=== PATIENT | male | born 1945 | race Hispanic/Latino ===

== ENCOUNTER 2023-08-31 10:53 | Day surgery (SDC) | payer OTHER, BC ==
[2023-08-28 13:43] LABS: Hematocrit 33.3 % (39.6-49.0); Lymphocytes % 17.9 % (15.3-44.8); MCV 95.8 fL (80-100); MPV 8.3 fL (7.6-11.3); Platelets 151 thou/uL (152-406); RBC Red Blood Cell Count 3.48 M/uL (4.33-5.43)
[2023-08-28 13:55] LABS: Protime INR 0.95
[2023-08-28 13:58] LABS: Potassium 4.5 mEq/L (3.5-5.1)
--- NOTE | 2023-08-29 17:25 | EKG ---
Test Date: 2023-08-28 Test Time: 14:32:54 Social Security Benefits Interviewer: JOSHUA MEASUREMENT RESULTS: Intervals: Rate: 57 MS: 150 QRSD: 106 QT: 402 QTc: 391 [place]: P: 19 MS: 150 QRS: -10 T: 6 INTERPRETIVE STATEMENTS: Sinus bradycardia Incomplete right bundle branch block Minimal voltage criteria for LVH, may be normal variant Inferior infarct, age undetermined Possible Anterior infarct, age undetermined Abnormal ECG Compared to ECG 04/11/2023 14:45:46 Left ventricular hypertrophy now present Sinus rhythm no longer present Myocardial infarct finding still present Electronically Signed On 08-29-23 17:23:19 CELL PREPARER by Nasim Polanco
[2023-08-31 11:46] VITALS: TEMP 97.9
[2023-08-31] MEDS ORDERED: NA CHLORIDE 0.9% 500 ML ONE (12:07)
[2023-08-31] MEDS ORDERED: LIDOCAINE 1% 20 ML MDV ONE (12:28)
[2023-08-31] MEDS ORDERED: HEPA 1000U/500MLS 2,000 UNIT/1,000 ML BAG IV ONE (12:28)
[2023-08-31] MEDS ORDERED: ATROPINE SULF 1 MG/10 ML SYR IV ONE (12:58)
[2023-08-31] MEDS ORDERED: FENTANYL CITR 100 MCG/2 ML ONE (12:58)
[2023-08-31] MEDS ORDERED: TICAGRELOR 90 MG TABLET PO ONE (12:58)
[2023-08-31] MEDS ORDERED: MIDAZOLAM HCL 2 MG/2 ML INJ ONE (12:58)
[2023-08-31] MEDS ORDERED: HEPARIN 10,000 UNIT/10 ML VIAL IV ONE (12:58)
[2023-08-31] MEDS ORDERED: ASPIRIN 325 MG TAB ONE (12:59)
[2023-08-31] MEDS ORDERED: CLOPIDOGREL 75 MG TABLET ONE (12:59)
[2023-08-31] MEDS ORDERED: HEPARIN 5000 UNIT/ML 1 ML VIAL ONE (13:01)
[2023-08-31] MEDS ORDERED: NITROGLYCERIN/D5W 25 MG/250 ML BTL IV ONE (13:01)
[2023-08-31] MEDS ORDERED: VERAPAMIL HCL 10 MG/4 ML VIAL IV ONE (13:01)
[2023-08-31 15:42] VITALS: O2SAT 100
[2023-08-31 17:38] VITALS: BP 113/50
--- NOTE | 2023-08-31 18:51 | OP ---
Date of Procedure: 08/31/2023 Surgeon: CASH ESTRELLA Procedures Performed: 1. Selective coronary angiogram. 2. PCI of severe mid RCA stenosis, I used a 2.5 x 60 mm Synergy drug-eluting stent. 3. PCI of proximal RCA stenosis, I used a 2.5 x 20 mm Synergy drug-eluting stent. 4. Indication: Chest pain with known coronary artery disease. Access: Right radial artery 6-Libyan closed with TR band. Complications: None. Bleeding: Less than 20 mL. Description Of Procedure: After risks, benefits, alternatives were explained, patient agreed to procedure and signed informed consent. Patient was brought into cardiac catheterization laboratory, prepped and draped in the usual sterile fashion. Then I accessed right radial artery using pediatric micropuncture kit, placed a 6-Libyan Slender sheath and took a 6-Libyan JR4 guide into the aortic root, engaged the RCA, took a Runthrough wire and placed it distally in the RCA and gave systemic heparin to assure ACT level above 250. Patient is already on aspirin and Plavix, and he received them today, and then using a 2.5 balloon, lesions were pre-dilated and then with the help of the GuideLiner, I was able to deliver 2.5 x 60 mm Synergy drug-eluting stent in the mid segment of the RCA and a 2.5 x 20 mm Synergy drug-eluting stent proximally with acceptable expansion of the proximal stent and excellent expansion of the mid stent and AZAM-3 flow at the end. At this point, we removed the wire. Final angiogram was satisfactory and then removed the guide and the sheath, placed TR band with good hemostasis. Findings: RCA approximately 80%, status post successful PCI as above. Mid RCA has 90% stenosis, status post successful PCI as above. Rest of the RCA is normal. Plan: Aspirin, Plavix, and statin. SR/MODL Voice ID: [id number] Report ID: [id number] [facility]PITALMiguel
== END 2023-08-31 17:32 | disposition home or self-care (01) ==
LOC: CCL 10:53
PROVIDERS: ATTEND Internal Medicine
DX: I25.110 Atherosclerotic heart disease of native coronary artery with unstable angina pectoris (principal); I10 Essential (primary) hypertension; I45.10 Unspecified right bundle-branch block; E78.5 Hyperlipidemia, unspecified; E11.9 Type 2 diabetes mellitus without complications; N40.0 Benign prostatic hyperplasia without lower urinary tract symptoms; Z95.1 Presence of aortocoronary bypass graft
CPT/HCPCS: 93005; 85025; 80048; 36415; 83721; 85610; 82947; 85347 ×2; 85730; 93454; 76937; C1893; Q9967; C1725; C9600; J1644; J2001; J2250; J3010; J7040; 99152; 99153; J0461

== ENCOUNTER 2024-07-15 11:21 | Day surgery (SDC) | payer OTHER, BC ==
[2024-07-11 14:04] LABS: Absolute Eosinophils 0.2 K/uL (0-0.5); Absolute Lymphocytes (CBC) 0.9 K/uL (0.7-4.9); Absolute Monocytes 0.5 K/uL (0.1-1.3); Absolute Neutrophil 3.4 K/uL (1.8-8.0); Basophils % 0.6 % (0-1.3); Eosinophils % 3.4 % (0-4.4); Hematocrit 32.6 % (39.6-49.0); Hemoglobin 10.7 g/dL (13.6-17.9); Lymphocytes % 17.3 % (15.3-44.8); MCH 31.9 pg (27.0-35.0); MCHC 32.7 g/dL (32.0-36.0); MCV 97.5 fL (80-100); Monocytes % 9.3 % (3.3-12.3); Neutrophils % 69.4 % (41.7-73.7); Platelets 156 thou/uL (152-406); RBC Red Blood Cell Count 3.34 M/uL (4.33-5.43); Red Cell Distribution Width 14.5 % (12.1-15.2)
[2024-07-11 14:08] LABS: PT Prothrombin Time 11.1 SECONDS (9.4-12.5); PTT, Activated Partial Thromb 31.5 SECONDS (24.3-36.9); Protime INR 0.99
--- NOTE | 2024-07-11 14:28 | RAD REPORT ---
Procedure: Chest Pa And Lat (2 Views) HISTORY: Preop for cardiac catheterization COMPARISON: 2022 FINDINGS: The lungs appear clear of acute infiltrate. Mild left lung opacities appear chronic. No significant pleural effusion noted. The heart is normal size.. Post surgical changes involve the chest IMPRESSION: No acute abnormality is displayed.
[2024-07-15] MEDS ORDERED: NA CHLORIDE 0.9% 500 ML ONE (11:57)
[2024-07-15 12:07] VITALS: TEMP 97.5
[2024-07-15] MEDS ORDERED: HEPA 1000U/500MLS 2,000 UNIT/1,000 ML BAG IV ONE (12:20)
[2024-07-15] MEDS ORDERED: HEPARIN 10,000 UNIT/10 ML VIAL IV ONE (12:20)
[2024-07-15] MEDS ORDERED: LIDOCAINE 1% 20 ML MDV ONE (12:20)
[2024-07-15] MEDS ORDERED: VERAPAMIL HCL 10 MG/4 ML VIAL IV ONE (12:20)
[2024-07-15] MEDS ORDERED: ASPIRIN 325 MG TAB ONE (12:21)
[2024-07-15] MEDS ORDERED: TICAGRELOR 90 MG TABLET PO ONE (12:21)
[2024-07-15] MEDS ORDERED: CLOPIDOGREL 75 MG TABLET ONE (12:21)
[2024-07-15] MEDS ORDERED: FENTANYL CITR 100 MCG/2 ML ONE (12:21)
[2024-07-15] MEDS ORDERED: MIDAZOLAM HCL 2 MG/2 ML INJ ONE (12:21)
[2024-07-15] MEDS ORDERED: ATROPINE SULF 1 MG/10 ML SYR IV ONE (12:21)
[2024-07-15] MEDS ORDERED: HEPARIN 5000 UNIT/ML 1 ML VIAL ONE (12:21)
[2024-07-15 15:10] VITALS: BP 149/57; O2SAT 95
--- NOTE | 2024-07-15 23:27 | OP ---
Date of Procedure: 07/15/2024 Surgeon: CASH ESTRELLA Procedures Performed: 1.Selective coronary angiogram with bypass graft study. 2.Left heart catheterization. Indication: Chest pain with abnormal stress test. Access: Right common femoral artery 6-Danish, closed with 6-Danish Angio-Seal. Complications: None. Bleeding: Less than 50 mL. Anesthesia: Total sedation time was 45 minutes, used fentanyl and Versed. Description Of Procedure: After risks, benefits, and alternatives were explained, the patient agreed to procedure and signed informed consent. The patient was brought into cardiac catheterization [facility], prepped and draped in usual sterile fashion. Then, I accessed right common femoral artery us ing micropuncture kit, placed a 6-Danish Slender sheath and took a 6-Danish JL4 catheter into aortic root, engaged left main, took standard views, and exchanged for 6-Danish JR4 catheter across the aort ic valve, measured the LVEDP. Pullback did not record any gradient. Then, engaged the SVG to OM and SVG to diagonal and LAWRENCE to LAD, took standard views and removed the catheter and the sheath, placed a 6-Danish Angio-Seal for closure with good hemostasis. Findings: 1.Left main is normal. 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 3.Left circumflex; proximal 70% and the OM is 100% occluded and the left circumflex becomes widely p atent after that. 4.RCA is widely patent stent and small nondominant. Bypass graft study: 1.Widely patent LAWRENCE to LAD. 2.Patent SVG to diagonal. 3.Patent SVG to OM graft. 4.LVEDP is at 20 mmHg. Conclusions: 1.Severe [place] coronary artery disease with widely patent grafts, SVG to OM, SVG to diagonal 1, and LAWRENCE to LAD, and widely patent stent to the RCA. 2.Elevated LVEDP. Recommendation: Medical management. SR/MODL Voice ID: [id number] Report ID: [id number]
--- NOTE | 2024-07-18 16:15 | EKG ---
Test Date: 2024-07-11 Test Time: 14:39:40 Accounts Payable Accountant: DAMIAN MEASUREMENT RESULTS: Intervals: Rate: 71 TX: 152 QRSD: 140 QT: 392 QTc: 425 [place]: P: 50 [place]: 152 QRS: -23 T: 18 INTERPRETIVE STATEMENTS: Normal sinus rhythm Right bundle branch block Inferior infarct, age undetermined Possible Anterior infarct, age undetermined Abnormal ECG Compared to ECG 08/28/2023 14:32:54 Right bundle-branch block now present Sinus bradycardia no longer present Incomplete right bundle-branch block no longer present Left ventricular hypertrophy no longer present Myocardial infarct finding still present Electronically Signed On 07-18-24 16:07:12 BIOMASS BOILER OPERATOR by Kleber Cain
== END 2024-07-15 15:10 | disposition home or self-care (01) ==
LOC: CCL 11:21
PROVIDERS: ATTEND Internal Medicine
DX: I25.10 Atherosclerotic heart disease of native coronary artery without angina pectoris (principal); I25.82 Chronic total occlusion of coronary artery; I35.0 Nonrheumatic aortic (valve) stenosis; I65.23 Occlusion and stenosis of bilateral carotid arteries; I73.9 Peripheral vascular disease, unspecified; I10 Essential (primary) hypertension; E78.5 Hyperlipidemia, unspecified; E11.9 Type 2 diabetes mellitus without complications; Z95.5 Presence of coronary angioplasty implant and graft; Z87.891 Personal history of nicotine dependence; Z79.82 Long term (current) use of aspirin; Z79.84 Long term (current) use of oral hypoglycemic drugs; Z79.899 Other long term (current) drug therapy
CPT/HCPCS: 93005; 85025; 80048; 36415; 85610; 82947; 85730; 71046; 93459; 76937; C1893; Q9966; J2003; J2250; J3010; J7040; 99152; 99153; J0461; J1644